=== PATIENT | female | born 1975 | race Caucasian/White ===

== ENCOUNTER 2016-11-10 12:07 | Emergency (ER) | payer OTHER ==
[~2016-11-10 12:07] MED LIST: AUGMENTIN PO; AURALGAN EAR DR14 ML OT; BENZONATATE PO; CELEXA PO; CIPRO PO; CIPRO250 MG PO; NO MEDICATIONS; PHENERGAN PO; PRENATAL VITAMI1 TA3 PO; WELLBUTRIN XL150 MG PO; ZITHROMAX500 MG PO
[2016-11-10 13:01] LABS: URINE SOURCE CLEAN CATCH
[2016-11-10 13:04] LABS: MICRO INDICATED? YES; URINE APPEARANCE CLOUDY; URINE BILIRUBIN NEG (NEG); URINE BLOOD 3+ (NEG); URINE COLOR YELLOW; URINE GLUCOSE NEG (NORM); URINE KETONE NEG (NEG); URINE LEUKOCYTE ESTERASE NEG (NEG); URINE NITRATE NEG (NEG); URINE PROTEIN NEG (NEG); URINE UROBILINOGEN 0.2 MG/DL (NORM)
[2016-11-10 13:22] LABS: CULTURE INDICATED? YES; URINE BACTERIA 1+ (NEG); URINE SQUAMOUS EPITHELIAL CELL FEW /[HPF]
== END 2016-11-10 13:48 | disposition home or self-care (01) ==
LOC: SED 12:07
PROVIDERS: Physician Assistant Medical
DX: H66.92 Otitis media, unspecified, left ear (principal); F17.210 Nicotine dependence, cigarettes, uncomplicated
CPT/HCPCS: 81003; 87086; 99283